=== PATIENT | male | born 1990 | race Caucasian/White ===

== ENCOUNTER 2016-08-30 12:08 | Emergency (ER) | payer OTHER ==
--- NOTE | 2016-08-30 13:33 | ED CLINICAL REPORT ---
Clinical Report - Physicians/Mid Levels [facility] [address] [place] [address] 08/30/2016 12:08 Patient: CALLIE MOLINA Time Seen: 13:08 Aug 30 2016. Arrived- By private vehicle. Historian- patient. HISTORY OF PRESENT ILLNESS Chief Complaint: SKIN RASH. 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 It is described as itchy. It has been generalized in location and located on the trunk. No cause has been identified. (Patient presents with a rash to the torso, some aspect of his chest upper extremity over the last 3 weeks, worsening, patient reports at times taking Benadryl for the rash which improves on his pruritic sensation. No history of recent illness, foreign travel. No recent known exposures to detergents, new soaps or new medications or antibiotics. No sick contacts at home with similar rash. No other systemic symptoms such as nausea vomiting fevers or diarrhea. No recent antibiotic use. Patient has not seen his regular primary care provider, as he does not have such. Here with his significant other.). REVIEW OF SYSTEMS No fever, difficulty breathing, diarrhea or difficulty with urination. All systems otherwise negative, except as recorded above. PAST HISTORY Problems: Depression. Infected Puncture Wound. Ingrown Toenail. Sprain. Tetanus Status. Additional Surgeries: no known surgeries. Medications: Lexapro Oral. Allergies: No Known Drug Allergy. SOCIAL HISTORY Smoker- current status unknown (chew). History of drug use: marijuana. ADDITIONAL NOTES The nursing notes have been reviewed. PHYSICAL EXAM Vital Signs: 08/30/2016 12:52 BP: 120/76. HR: 78. RR: 15. O2 saturation: 100%. Temp: 98.2 F. Pain level now: 0/10. Appearance: Alert. No acute distress. ENT: Ears normal. Nose normal. CVS: Normal heart rate and rhythm. Heart sounds normal. Respiratory: No respiratory distress. Breath sounds normal. Abdomen: Nontender. No organomegaly. Skin: Skin warm. No erythema. No tender indurated area. No cellulitis. Rash present on the trunk (abd/ chest/ thoracic region/ upper axilla/). The rash is macular. No warmth or tenderness. PROGRESS AND PROCEDURES Course of Care: Patient was rash on bilateral last 1 month. No signs of systemic symptoms here in the emergency department. Rash is nonpruritic in nature, does not appear infectious. Patient has not seen primary care provider as he has not had establish with one. No recent exposures known to him. Burning sensations. no vesicles. 08/30/2016 12:52 BP: 120/76. HR: 78. RR: 15. O2 saturation: 100%. Temp: 98.2 F. Pain level now: 0/10. Patient is stable. Physical exam findings are improved. Symptoms better. Patient/family counseled. Disposition: Discharged. CLINICAL IMPRESSION Mild irritative contact dermatitis. INSTRUCTIONS (Address: [address] [place] [address] [place] [address] ). Prescription Medications: Elimite 5% Cream: Shower & dry, then apply cream to whole body from neck down, leave on 8 hours then shower & launder clothes & bedclothes in hot water. Dispense sixty (60) gm. No refill. Substitution is permissible. Medrol Dosepak: take according to package directions. Dispense one (1) dosepak. No refills. Substitution is permissible. Follow-up: Follow up with your doctor in five days as needed and for wound check. (Electronically signed by Marquita Vázquez P.A.-C 08/30/2016 13:59)
--- NOTE | 2016-08-30 13:33 | ED CLINICAL REPORT ---
Clinical Report - Physicians/Mid Levels [facility] [address] [place] [address] 08/30/2016 12:08 Patient: CALLIE MOLINA Time Seen: 13:08 Aug 30 2016. Arrived- By private vehicle. Historian- patient. HISTORY OF PRESENT ILLNESS Chief Complaint: SKIN RASH. 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 It is described as itchy. It has been generalized in location and located on the trunk. No cause has been identified. (Patient presents with a rash to the torso, some aspect of his chest upper extremity over the last 3 weeks, worsening, patient reports at times taking Benadryl for the rash which improves on his pruritic sensation. No history of recent illness, foreign travel. No recent known exposures to detergents, new soaps or new medications or antibiotics. No sick contacts at home with similar rash. No other systemic symptoms such as nausea vomiting fevers or diarrhea. No recent antibiotic use. Patient has not seen his regular primary care provider, as he does not have such. Here with his significant other.). REVIEW OF SYSTEMS No fever, difficulty breathing, diarrhea or difficulty with urination. All systems otherwise negative, except as recorded above. PAST HISTORY Problems: Depression. Infected Puncture Wound. Ingrown Toenail. Sprain. Tetanus Status. Additional Surgeries: no known surgeries. Medications: Lexapro Oral. Allergies: No Known Drug Allergy. SOCIAL HISTORY Smoker- current status unknown (chew). History of drug use: marijuana. ADDITIONAL NOTES The nursing notes have been reviewed. PHYSICAL EXAM Vital Signs: 08/30/2016 12:52 BP: 120/76. HR: 78. RR: 15. O2 saturation: 100%. Temp: 98.2 F. Pain level now: 0/10. Appearance: Alert. No acute distress. ENT: Ears normal. Nose normal. CVS: Normal heart rate and rhythm. Heart sounds normal. Respiratory: No respiratory distress. Breath sounds normal. Abdomen: Nontender. No organomegaly. Skin: Skin warm. No erythema. No tender indurated area. No cellulitis. Rash present on the trunk (abd/ chest/ thoracic region/ upper axilla/). The rash is macular. No warmth or tenderness. PROGRESS AND PROCEDURES Course of Care: Patient was rash on bilateral last 1 month. No signs of systemic symptoms here in the emergency department. Rash is nonpruritic in nature, does not appear infectious. Patient has not seen primary care provider as he has not had establish with one. No recent exposures known to him. Burning sensations. no vesicles. 08/30/2016 12:52 BP: 120/76. HR: 78. RR: 15. O2 saturation: 100%. Temp: 98.2 F. Pain level now: 0/10. Patient is stable. Physical exam findings are improved. Symptoms better. Patient/family counseled. Disposition: Discharged. CLINICAL IMPRESSION Mild irritative contact dermatitis. INSTRUCTIONS (Address: [address] [place] [address] [place] [address] ). Prescription Medications: Elimite 5% Cream: Shower & dry, then apply cream to whole body from neck down, leave on 8 hours then shower & launder clothes & bedclothes in hot water. Dispense sixty (60) gm. No refill. Substitution is permissible. Medrol Dosepak: take according to package directions. Dispense one (1) dosepak. No refills. Substitution is permissible. Follow-up: Follow up with your doctor in five days as needed and for wound check. (Electronically signed by Marquita Vázquez P.A.-C 08/30/2016 13:59)
--- NOTE | 2016-08-30 13:33 | ED NURSING NOTES ---
Clinical Report - Nurses [facility] [address] [place] [address] 08/30/2016 12:08 Patient: CALLIE MOLINA TRIAGE Triage time 1250 PM. Acuity: LEVEL 4. Chief Complaint: DIARRHEA (rash). Alert. No acute distress. SEPSIS SCREEN: Sepsis Screen. Negative (no infection suspected/documented). --13:02 Rosina Guidry R.N. 12:52 08/30/16. BP: 120/76 (regular adult cuff) taken on the left arm, via an automated monitor, while sitting. HR: 78. RR: 15. O2 saturation: 100%. Temp: 98.2 F. Pain level now: 0/10. --13:02 Rosina Guidry R.N. Weight: 83.9 kg stated. Height/Length: 69 inches Per Patient. BMI: 27.3. --12:53 Rosina Guidry R.N. Medications Lexapro Oral. --12:54 Rosina Guidry R.N. Allergies No Known Drug Allergy. --12:53 Rosina Guidry R.N. Medication/allergy information source: the patient. --13:02 Rosina Guidry R.N. History Arrived by private vehicle. Historian: patient. Accompanied by family. Primary physician (None). ( Pt states noted a rash that started on his right under arm approximately 2 weeks ago and has progressively spread thru out his body, groin back, belly, bilateral arm pits, and upper legs, denies fevers does admit to having diarrhea about 2-3 times a day, pt has been having right flank pain for the past 4 weeks as well. Denies on changing any routines. Has taken benadryl with no relief). Onset. (2 weeks). He has had fever and skin rash. No weakness, cough or difficulty breathing. Denies muscle aches. 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 PAST MEDICAL HX: Immunizations: status is unknown. SOCIAL HX: Smoker- current status unknown (chew tabacco 1 can 3-4 days). History of drug use: marijuana. (1 months). No infectious disease exposure. ABUSE ASSESSMENT: No report of abuse. SELF HARM ASSESSMENT: A self harm assessment was performed. The patient answered "no" to the question "Do you have thoughts of harming or killing yourself?" and "Have you recently had thoughts about harming or killing others?". FALL RISK ASSESSMENT: Fall risk assessment completed. No fall risk identified. NUTRITIONAL RISK ASSESSMENT: The nutritional risk assessment revealed no deficiencies. FUNCTIONAL ASSESSMENT: Functional assessment: no impairments noted. LEARNING NEEDS ASSESSMENT: The learning needs assessment revealed no barriers. SKIN INTEGRITY ASSESSMENT: Skin integrity risk assessment completed. No skin integrity risk identified. --13:02 Rosina Guidry R.N. PROBLEMS: Depression. Infected Puncture Wound. Ingrown Toenail. Sprain. --12:54 oRsina Guidry R.N. ADDITIONAL SURGERIES: no known surgeries. Interventions ID band on patient. --13:02 Rosina Guidry R.N. PHYSICAL ASSESSMENT Ambulatory to room. GENERAL / NEURO / PSYCH: Alert. Oriented X 4. Appears in no acute distress. HEENT: Mucous membranes are pink. RESPIRATORY: Respirations not labored. Chest nontender. Breath sounds within normal limits. GI / : Abdomen soft and nontender and normal bowel sounds. SKIN: Skin intact. Skin is warm and dry. Generalized, well-demarcated, macular, raised skin rash located in skin folds and on the right arm and right leg, left arm and left leg, chest, back, trunk and abdomen. Normal skin turgor. --13:03 Rosina Guidry R.N. NURSING PROGRESS NOTES The initial plan of care for this patient has been created This plan of care was discussed with the patient and family. Patient gowned. Reassurance given. Two patient identifiers checked. Call light placed in reach. Side rails up x 1. Bed placed in lowest position. Brakes of bed on. Patient ready for evaluation- ED physician notified. --13:03 Rosina Guidry R.N. DISPOSITION / DISCHARGE Departure time: 1418 PM. Condition at departure: stable. No learning barriers present. Discharge instructions provided and reviewed with the patient and spouse. Reviewed medication(s) side effects, precautions, dosing and course information. Prescription(s) given to the patient. Reviewed referral to an mva operator for followup. Patient verbalized understanding. Written instructions provided in [place]. No diet instructions or activity restrictions. The patient was discharged by the physician doctor assistant. He was discharged home and accompanied by spouse. He left the Emergency Department ambulatory and via private vehicle. Spouse driving. --14:19 Rosina Guidry R.N. 14:17 08/30/16. BP: 121/74 (regular adult cuff) taken on the left arm, via an automated monitor, while standing. HR: 68. RR: 14. O2 saturation: 100% on room air. Temp: 98.3 F (oral). Pain level now: 0/10. --14:19 Rosina Guidry R.N. Locked/Released at 08/30/2016 14:19 by Rosina Guidry R.N.
--- NOTE | 2016-08-30 13:33 | ED NURSING NOTES ---
Clinical Report - Nurses [facility] [address] [place] [address] 08/30/2016 12:08 Patient: CALLIE MOLINA TRIAGE Triage time 1250 PM. Acuity: LEVEL 4. Chief Complaint: DIARRHEA (rash). Alert. No acute distress. SEPSIS SCREEN: Sepsis Screen. Negative (no infection suspected/documented). --13:02 Rosina Guidry R.N. 12:52 08/30/16. BP: 120/76 (regular adult cuff) taken on the left arm, via an automated monitor, while sitting. HR: 78. RR: 15. O2 saturation: 100%. Temp: 98.2 F. Pain level now: 0/10. --13:02 Rosina Guidry R.N. Weight: 83.9 kg stated. Height/Length: 69 inches Per Patient. BMI: 27.3. --12:53 Rosina Guidry R.N. Medications Lexapro Oral. --12:54 Rosina Guidry R.N. Allergies No Known Drug Allergy. --12:53 Rosina Guidry R.N. Medication/allergy information source: the patient. --13:02 Rosina Guidry R.N. History Arrived by private vehicle. Historian: patient. Accompanied by family. Primary physician (None). ( Pt states noted a rash that started on his right under arm approximately 2 weeks ago and has progressively spread thru out his body, groin back, belly, bilateral arm pits, and upper legs, denies fevers does admit to having diarrhea about 2-3 times a day, pt has been having right flank pain for the past 4 weeks as well. Denies on changing any routines. Has taken benadryl with no relief). Onset. (2 weeks). He has had fever and skin rash. No weakness, cough or difficulty breathing. Denies muscle aches. 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 PAST MEDICAL HX: Immunizations: status is unknown. SOCIAL HX: Smoker- current status unknown (chew tabacco 1 can 3-4 days). History of drug use: marijuana. (1 months). No infectious disease exposure. ABUSE ASSESSMENT: No report of abuse. SELF HARM ASSESSMENT: A self harm assessment was performed. The patient answered "no" to the question "Do you have thoughts of harming or killing yourself?" and "Have you recently had thoughts about harming or killing others?". FALL RISK ASSESSMENT: Fall risk assessment completed. No fall risk identified. NUTRITIONAL RISK ASSESSMENT: The nutritional risk assessment revealed no deficiencies. FUNCTIONAL ASSESSMENT: Functional assessment: no impairments noted. LEARNING NEEDS ASSESSMENT: The learning needs assessment revealed no barriers. SKIN INTEGRITY ASSESSMENT: Skin integrity risk assessment completed. No skin integrity risk identified. --13:02 Rosina Guidry R.N. PROBLEMS: Depression. Infected Puncture Wound. Ingrown Toenail. Sprain. --12:54 Rosina Guidry R.N. ADDITIONAL SURGERIES: no known surgeries. Interventions ID band on patient. --13:02 Rosina Guidry R.N. PHYSICAL ASSESSMENT Ambulatory to room. GENERAL / NEURO / PSYCH: Alert. Oriented X 4. Appears in no acute distress. HEENT: Mucous membranes are pink. RESPIRATORY: Respirations not labored. Chest nontender. Breath sounds within normal limits. GI / : Abdomen soft and nontender and normal bowel sounds. SKIN: Skin intact. Skin is warm and dry. Generalized, well-demarcated, macular, raised skin rash located in skin folds and on the right arm and right leg, left arm and left leg, chest, back, trunk and abdomen. Normal skin turgor. --13:03 Rosina Guidry R.N. NURSING PROGRESS NOTES The initial plan of care for this patient has been created This plan of care was discussed with the patient and family. Patient gowned. Reassurance given. Two patient identifiers checked. Call light placed in reach. Side rails up x 1. Bed placed in lowest position. Brakes of bed on. Patient ready for evaluation- ED physician notified. --13:03 Rosina Guidry R.N. DISPOSITION / DISCHARGE Departure time: 1418 PM. Condition at departure: stable. No learning barriers present. Discharge instructions provided and reviewed with the patient and spouse. Reviewed medication(s) side effects, precautions, dosing and course information. Prescription(s) given to the patient. Reviewed referral to an newspaper stuffer for followup. Patient verbalized understanding. Written instructions provided in Malaysian. No diet instructions or activity restrictions. The patient was discharged by the physician product development assistant. He was discharged home and accompanied by spouse. He left the Emergency Department ambulatory and via private vehicle. Spouse driving. --14:19 Rosina Guidry R.N. 14:17 08/30/16. BP: 121/74 (regular adult cuff) taken on the left arm, via an automated monitor, while standing. HR: 68. RR: 14. O2 saturation: 100% on room air. Temp: 98.3 F (oral). Pain level now: 0/10. --14:19 Rosina Guidry R.N. Locked/Released at 08/30/2016 14:19 by Rosina Guidry R.N.
--- NOTE | 2016-08-30 14:19 | ED DISCHARGE INSTRUCTIONS ---
Patient: CALLIE MOLINA General Instructions [facility] VisitID: [id number] [place] [address] 26y, M Registration Date/Time: 08/30/2016 Mild irritative contact dermatitis. INSTRUCTIONS (Address: [place] [address] ). Prescription Medications: Elimite 5% Cream: Shower & dry, then apply cream to whole body from neck down, leave on 8 hours then shower & launder clothes & bedclothes in hot water. Dispense sixty (60) gm. No refill. Substitution is permissible. Medrol Dosepak: take according to package directions. Dispense one (1) dosepak. No refills. Substitution is permissible. Follow-up: Follow up with your doctor in five days as needed and for wound check. ADDITIONAL INFORMATION Dermatitis (Non-Specific) Dermatitis is an inflammation of the skin. The exact cause of your rash is not certain. However, this rash does not appear to be an infection or contagious illness. Taking care of the rash at home should help relieve your symptoms. Home Care: Keep the areas of rash clean by washing it daily. This also helps to keep the skin moist. Use a neutral pH soap such as Dove or Lever 2000. Apply a moisturizing lotion after bathing to prevent dry skin. Avoid skin irritants (wool or silk clothing, grease, oils, some medicines, harsh soaps, and detergents). Wear absorbent, soft fabrics next to the skin rather than rough or scratchy materials. Unless another medicine was prescribed, you may use Hydrocortisone cream (which you can get without a prescription) to reduce the inflammation. Follow Up: Make an appointment with your doctor in the next 1 to 2 weeks if your symptoms do not improve with the above measures. Get Prompt Medical Attention if any of the following occur: Increasing area of redness or pain in the skin Yellow crusts or drainage from the rash Joint pain New rash that appears in other areas of the body Fever of 100.4F (38C) or higher, or as directed by your healthcare provider You have been given the following additional information: Dermatitis, Non-Specific (Electronically signed by Marquita Vázquez P.A.-C 08/30/2016 13:59)
--- NOTE | 2016-08-30 14:19 | ED MAR SUMMARY ---
..... Medication Administration Record [facility] [address] [place] [id number] Patient: CALLIE MOLINA Visit ID: [id number] 26y, M Weight: 83.9 kg Height/Length: 69 in BMI: 27.3 ALLERGIES: No Known Drug Allergy
--- NOTE | 2016-08-30 14:19 | ED DISCHARGE INSTRUCTIONS ---
Patient: CALLIE MOLINA General Instructions [facility] VisitID: [id number] [place] [address] 26y, M Registration Date/Time: 08/30/2016 Mild irritative contact dermatitis. INSTRUCTIONS (Address: [place] [address] ). Prescription Medications: Elimite 5% Cream: Shower & dry, then apply cream to whole body from neck down, leave on 8 hours then shower & launder clothes & bedclothes in hot water. Dispense sixty (60) gm. No refill. Substitution is permissible. Medrol Dosepak: take according to package directions. Dispense one (1) dosepak. No refills. Substitution is permissible. Follow-up: Follow up with your doctor in five days as needed and for wound check. ADDITIONAL INFORMATION Dermatitis (Non-Specific) Dermatitis is an inflammation of the skin. The exact cause of your rash is not certain. However, this rash does not appear to be an infection or contagious illness. Taking care of the rash at home should help relieve your symptoms. Home Care: Keep the areas of rash clean by washing it daily. This also helps to keep the skin moist. Use a neutral pH soap such as Dove or Lever 2000. Apply a moisturizing lotion after bathing to prevent dry skin. Avoid skin irritants (wool or silk clothing, grease, oils, some medicines, harsh soaps, and detergents). Wear absorbent, soft fabrics next to the skin rather than rough or scratchy materials. Unless another medicine was prescribed, you may use Hydrocortisone cream (which you can get without a prescription) to reduce the inflammation. Follow Up: Make an appointment with your doctor in the next 1 to 2 weeks if your symptoms do not improve with the above measures. Get Prompt Medical Attention if any of the following occur: Increasing area of redness or pain in the skin Yellow crusts or drainage from the rash Joint pain New rash that appears in other areas of the body Fever of 100.4F (38C) or higher, or as directed by your healthcare provider You have been given the following additional information: Dermatitis, Non-Specific (Electronically signed by Marquita Vázquez P.A.-C 08/30/2016 13:59)
--- NOTE | 2016-08-30 14:19 | ED MED RECONCILIATION SUMMARY ---
Patient: CALLIE MOLINA Medication Reconciliation Report [facility] VisitID: [id number] [address] [place] [address] 26y, M Registration Date/Time: 08/30/2016 Weight: 83.9 kg Height/Length: 69 in. BMI: 27.3 ALLERGIES: No Known Drug Allergy The patient's Home Medications are listed below: THE FOLLOWING MEDICATIONS NEED TO BE RECONCILED: Lexapro Oral The source(s) of the original Home Medication information: patient The following Medications were given to the patient in the Emergency Department: None. The following Medications were prescribed to the patient: Elimite 5% Cream: Shower & dry, then apply cream to whole body from neck down, leave on 8 hours then shower & launder clothes & bedclothes in hot water. Dispense sixty (60) gm. No refill. Substitution is permissible. -- Marquita Vázquez, P.A.-C Medrol Dosepak: take according to package directions. Dispense one (1) dosepak. No refills. Substitution is permissible. -- Marquita Vázquez, P.A.-C
--- NOTE | 2016-08-30 14:19 | ED MED RECONCILIATION SUMMARY ---
Patient: CALLIE MOLINA Medication Reconciliation Report [facility] VisitID: [id number] [address] [place] [address] 26y, M Registration Date/Time: 08/30/2016 Weight: 83.9 kg Height/Length: 69 in. BMI: 27.3 ALLERGIES: No Known Drug Allergy The patient's Home Medications are listed below: THE FOLLOWING MEDICATIONS NEED TO BE RECONCILED: Lexapro Oral The source(s) of the original Home Medication information: patient The following Medications were given to the patient in the Emergency Department: None. The following Medications were prescribed to the patient: Elimite 5% Cream: Shower & dry, then apply cream to whole body from neck down, leave on 8 hours then shower & launder clothes & bedclothes in hot water. Dispense sixty (60) gm. No refill. Substitution is permissible. -- Marquita Vázquez, P.A.-C Medrol Dosepak: take according to package directions. Dispense one (1) dosepak. No refills. Substitution is permissible. -- Marquita Vázquez, P.A.-C
--- NOTE | 2016-08-30 14:19 | ED MAR SUMMARY ---
..... Medication Administration Record [facility] [address], [place] [id number] Patient: CALLIE MOLINA Visit ID: [id number] 26y, M Weight: 83.9 kg Height/Length: 69 in BMI: 27.3 ALLERGIES: No Known Drug Allergy
== END 2016-08-30 14:10 | disposition home or self-care (01) ==
LOC: ED SRH 12:08
DX: L25.9 Unspecified contact dermatitis, unspecified cause (principal); F17.200 Nicotine dependence, unspecified, uncomplicated; F12.10 Cannabis abuse, uncomplicated

== ENCOUNTER 2016-10-11 09:21 | Emergency (ER) | payer OTHER ==
--- NOTE | 2016-10-11 10:11 | ED ORDER SUMMARY ---
..... Patient: CALLIE MOLINA OrderSheet [facility] VisitID: [id number] [address] [place] [address] 26y, M Registration Date/Time: 10/11/2016 ORDER SHEET Weight: 83.9 kg (stated) Allergies: No Known Drug Allergy GENERAL ORDERS: UA-Culture if indicated Urgent (10:03 10/11/2016 MWinterer R.N. per protocol) (10:17 MWinterer R.N.) MEDICATION ORDERS: Motrin PO 800 mg (NOW) (10:04 10/11/2016 Rick Cole) (Ack 10:07 MWinterer R.N.) (10:17 MWinterer R.N.) IV FLUIDS: ORDER SHEET NOTES: [Electronically signed by Esme Swanson R.N. (11:53 10/11/2016)] [Electronically signed by Jeevan Ann Dr. (22:26 10/11/2016)] [Electronically locked/signed by Esme Swanson R.N. (11:53 10/11/2016)]
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
--- NOTE | 2016-10-11 10:11 | ED CLINICAL REPORT ---
Clinical Report - Physicians/Mid Levels [facility] [address] [place] [place] [address] 10/11/2016 9:22 Patient: CALLIE MOLINA Time Seen: 0933; initial patient contact. Arrived- By private vehicle. Historian- patient. HISTORY OF PRESENT ILLNESS Chief Complaint: BACK PAIN. Modifying factors- worsened by bending over and lifting. Relieved by remaining still. It is described as being mild and in the area of the lower lumbar spine and right lower lumbar spine. The quality is noted to be aching. No radiation. Onset- about 2 weeks ago and it is still present. No bladder dysfunction, bowel dysfunction, sensory loss or motor loss. Patient denies an injury but injury to the head or neck. Mechanism of injury- (unknown). Occurred at home. Similar symptoms previously: None. Recent medical care: Not recently seen/assessed. REVIEW OF SYSTEMS No difficulty with urination, urinary frequency, hematuria or abdominal pain. All systems otherwise negative, except as recorded above. PAST HISTORY Contact Dermatitis. Depression. Infected Puncture Wound. Ingrown Toenail. Sprain. Medications: Allergy Oral. Allergies: No Known Drug Allergy. SOCIAL HISTORY Never smoker. Occasional alcohol use. History of drug use: marijuana. ADDITIONAL NOTES The nursing notes have been reviewed. PHYSICAL EXAM Vital Signs: 10/11/2016 09:31 BP: 119/72. HR: 60. RR: 12. O2 saturation: 98%. Temp: 97.7 F. Pain level now: 6/10. Have been reviewed as normal. Appearance: Alert. No acute distress. Abdomen: Soft and nontender. Bowel sounds normal. No organomegaly. No mass. The bowel sounds are not abnormal. Back: Mild muscle spasm of the right posterior back. Mild soft tissue tenderness in the right mid and lower lumbar area. No vertebral point tenderness, CVA tenderness or limitation in ROM. Skin: Skin warm and dry. Normal skin color. Neuro: Oriented X 3. Mood/affect normal. No motor deficit. No sensory deficit. Straight leg raising: negative on the right and negative on the left. PROGRESS AND PROCEDURES Disposition: Discharged home in good condition. Condition: good. CLINICAL IMPRESSION Acute lumbar strain. INSTRUCTIONS Prescription Medications: Baclofen 10 mg: take 1 orally every 8 hours. Dispense thirty (30). No refills. Diclofenac 50 mg tablets: take 1 tablet orally every 8 hours as needed for pain or stiffness. Dispense thirty (30). No refill. Follow-up: Follow up with your doctor in about one week if not better. Call for an appointment. Screening today revealed the patient's blood pressure to be in the normal range. (Electronically signed by Jeevan Ann Dr. 10/11/2016 22:26)
--- NOTE | 2016-10-11 10:11 | ED CLINICAL REPORT ---
Clinical Report - Physicians/Mid Levels [facility] [address] [place] [address] 10/11/2016 9:22 Patient: CALLIE MOLINA Time Seen: 0933; initial patient contact. Arrived- By private vehicle. Historian- patient. HISTORY OF PRESENT ILLNESS Chief Complaint: BACK PAIN. Modifying factors- worsened by bending over and lifting. Relieved by remaining still. It is described as being mild and in the area of the lower lumbar spine and right lower lumbar spine. The quality is noted to be aching. No radiation. Onset- about 2 weeks ago and it is still present. No bladder dysfunction, bowel dysfunction, sensory loss or motor loss. Patient denies an injury but injury to the head or neck. Mechanism of injury- (unknown). Occurred at home. Similar symptoms previously: None. Recent medical care: Not recently seen/assessed. REVIEW OF SYSTEMS No difficulty with urination, urinary frequency, hematuria or abdominal pain. All systems otherwise negative, except as recorded above. PAST HISTORY Contact Dermatitis. Depression. Infected Puncture Wound. Ingrown Toenail. Sprain. Medications: Allergy Oral. Allergies: No Known Drug Allergy. SOCIAL HISTORY Never smoker. Occasional alcohol use. History of drug use: marijuana. ADDITIONAL NOTES The nursing notes have been reviewed. PHYSICAL EXAM Vital Signs: 10/11/2016 09:31 BP: 119/72. HR: 60. RR: 12. O2 saturation: 98%. Temp: 97.7 F. Pain level now: 6/10. Have been reviewed as normal. Appearance: Alert. No acute distress. Abdomen: Soft and nontender. Bowel sounds normal. No organomegaly. No mass. The bowel sounds are not abnormal. Back: Mild muscle spasm of the right posterior back. Mild soft tissue tenderness in the right mid and lower lumbar area. No vertebral point tenderness, CVA tenderness or limitation in ROM. Skin: Skin warm and dry. Normal skin color. Neuro: Oriented X 3. Mood/affect normal. No motor deficit. No sensory deficit. Straight leg raising: negative on the right and negative on the left. PROGRESS AND PROCEDURES Disposition: Discharged home in good condition. Condition: good. CLINICAL IMPRESSION Acute lumbar strain. INSTRUCTIONS Prescription Medications: Baclofen 10 mg: take 1 orally every 8 hours. Dispense thirty (30). No refills. Diclofenac 50 mg tablets: take 1 tablet orally every 8 hours as needed for pain or stiffness. Dispense thirty (30). No refill. Follow-up: Follow up with your doctor in about one week if not better. Call for an appointment. Screening today revealed the patient's blood pressure to be in the normal range. (Electronically signed by Jeevan Ann Dr. 10/11/2016 22:26)
--- NOTE | 2016-10-11 10:11 | ED ORDER SUMMARY ---
..... Patient: CALLIE MOLINA OrderSheet [facility] VisitID: [id number] [address] [place] [address] 26y, M Registration Date/Time: 10/11/2016 ORDER SHEET Weight: 83.9 kg (stated) Allergies: No Known Drug Allergy GENERAL ORDERS: UA-Culture if indicated Urgent (10:03 10/11/2016 MWinterer R.N. per protocol) (10:17 MWinterer R.N.) MEDICATION ORDERS: Motrin PO 800 mg (NOW) (10:04 10/11/2016 Rick Cole) (Ack 10:07 MWinterer R.N.) (10:17 MWinterer R.N.) IV FLUIDS: ORDER SHEET NOTES: [Electronically signed by Esme Swanson R.N. (11:53 10/11/2016)] [Electronically signed by Jeevan Ann Dr. (22:26 10/11/2016)] [Electronically locked/signed by Esme Swanson R.N. (11:53 10/11/2016)]
--- NOTE | 2016-10-11 22:26 | ED MAR SUMMARY ---
..... Medication Administration Record [address] [place] [address] Patient: CALLIE MOLINA Visit ID: [id number] 26y, M Weight: 83.9 kg Height/Length: 69 in BMI: 27.3 ALLERGIES: No Known Drug Allergy Given 10:07 10/11/2016 Esme Swanson R.N. Medication Administered: MOTRIN [PO], Dose: 800 mg PO. Medication Ordered: Motrin PO 800 mg (NOW).
--- NOTE | 2016-10-11 22:26 | ED MED RECONCILIATION SUMMARY ---
Patient: CALLIE MOLINA Medication Reconciliation Report [facility] VisitID: [id number] [address] [place] [address] 26y, M Registration Date/Time: 10/11/2016 Weight: 83.9 kg Height/Length: 69 in. BMI: 27.3 ALLERGIES: No Known Drug Allergy The patient's Home Medications are listed below: THE FOLLOWING MEDICATIONS NEED TO BE RECONCILED: Allergy Oral The source(s) of the original Home Medication information: patient The following Medications were given to the patient in the Emergency Department: Motrin [PO] PO 800 mg, administered: 10/11/2016 10:07:00 AM The following Medications were prescribed to the patient: Baclofen 10 mg: take 1 orally every 8 hours. Dispense thirty (30). No refills. -- Jeevan Ann Dr. Diclofenac 50 mg tablets: take 1 tablet orally every 8 hours as needed for pain or stiffness. Dispense thirty (30). No refill. -- Jeevan Ann Dr.
--- NOTE | 2016-10-11 22:26 | ED MAR SUMMARY ---
..... Medication Administration Record [address] [place] [address] Patient: CALLIE MOLINA Visit ID: [id number] 26y, M Weight: 83.9 kg Height/Length: 69 in BMI: 27.3 ALLERGIES: No Known Drug Allergy Given 10:07 10/11/2016 Esme Swanson R.N. Medication Administered: MOTRIN [PO], Dose: 800 mg PO. Medication Ordered: Motrin PO 800 mg (NOW).
--- NOTE | 2016-10-11 22:26 | ED DISCHARGE INSTRUCTIONS ---
Patient: CALLIE MOLINA General Instructions [facility] VisitID: [id number] [place] [address] 26y, M Registration Date/Time: 10/11/2016 Acute lumbar strain. INSTRUCTIONS Prescription Medications: Baclofen 10 mg: take 1 orally every 8 hours. Dispense thirty (30). No refills. Diclofenac 50 mg tablets: take 1 tablet orally every 8 hours as needed for pain or stiffness. Dispense thirty (30). No refill. Follow-up: Follow up with your doctor in about one week if not better. Call for an appointment. Screening today revealed the patient's blood pressure to be in the normal range. ADDITIONAL INFORMATION Back Pain [Acute Or Chronic] Back pain is usually caused by an injury to the muscles or ligaments of the spine. Sometimes the disks that separate each bone in the spine may bulge and cause pain by pressing on a nearby nerve. Back pain may also appear after a sudden twisting/bending force (such as in a car accident), after a simple awkward movement, or lifting something heavy with poor body positioning. In either case, muscle spasm is often present and adds to the pain. Acute back pain usually gets better in one to two weeks. Back pain related to disk disease, arthritis in the spinal joints or spinal stenosis (narrowing of the spinal canal) can become chronic and last for months or years. Unless you had a physical injury (for example, a car accident or fall) X-rays are usually not ordered for the initial evaluation of back pain. If pain continues and does not respond to medical treatment, x-rays and other tests may be performed at a later time. Home Care: You may need to stay in bed the first few days. But, as soon as possible, begin sitting or walking to avoid problems with prolonged bed rest (muscle weakness, worsening back stiffness and pain, blood clots in the legs). When in bed, try to find a position of comfort. A firm mattress is best. Try lying flat on your back with pillows under your knees. You can also try lying on your side with your knees bent up towards your chest and a pillow between your knees. Avoid prolonged sitting. This puts more stress on the lower back than standing or walking. During the first two days after injury, apply an ICE PACK to the painful area for 20 minutes every 2-4 hours. This will reduce swelling and pain. HEAT (hot shower, hot bath or heating pad) works well for muscle spasm. You can start with ice, then switch to heat after two days. Some patients feel best alternating ice and heat treatments. Use the one method that feels the best to you. You may use acetaminophen (Tylenol) or ibuprofen (Motrin, Advil) to control pain, unless another pain medicine was prescribed. [NOTE: If you have chronic liver or kidney disease or ever had a stomach ulcer or GI bleeding, talk with your doctor before using these medicines.] Be aware of safe lifting methods and do not lift anything over 15 pounds until all the pain is gone. Follow Up with your doctor or this facility if your symptoms do not start to improve after one week. Physical therapy may be needed. [NOTE: If X-rays were taken, they will be reviewed by a radiologist. You will be notified of any new findings that may affect your care.] Get Prompt Medical Attention if any of the following occur: Pain becomes worse or spreads to your legs Weakness or numbness in one or both legs Loss of bowel or bladder control Numbness in the groin or genital area You have been given the following additional information: Back Pain (Acute Or Chronic) (Electronically signed by Jeevan Ann Dr. 10/11/2016 22:26)
--- NOTE | 2016-10-11 22:26 | ED MED RECONCILIATION SUMMARY ---
Patient: CALLIE MOLINA Medication Reconciliation Report [facility] VisitID: [id number] [address] [place] [address] 26y, M Registration Date/Time: 10/11/2016 Weight: 83.9 kg Height/Length: 69 in. BMI: 27.3 ALLERGIES: No Known Drug Allergy The patient's Home Medications are listed below: THE FOLLOWING MEDICATIONS NEED TO BE RECONCILED: Allergy Oral The source(s) of the original Home Medication information: patient The following Medications were given to the patient in the Emergency Department: Motrin [PO] PO 800 mg, administered: 10/11/2016 10:07:00 AM The following Medications were prescribed to the patient: Baclofen 10 mg: take 1 orally every 8 hours. Dispense thirty (30). No refills. -- Jeevan Ann Dr. Diclofenac 50 mg tablets: take 1 tablet orally every 8 hours as needed for pain or stiffness. Dispense thirty (30). No refill. -- Jeevan Ann Dr.
== END 2016-10-11 10:35 | disposition home or self-care (01) ==
LOC: ED SRH 09:21
DX: S39.012A Strain of muscle, fascia and tendon of lower back, initial encounter (principal); X58.XXXA Exposure to other specified factors, initial encounter; Y93.9 Activity, unspecified; Y92.019 Unspecified place in single-family (private) house as the place of occurrence of the external cause; Y99.9 Unspecified external cause status
CPT/HCPCS: 90004

== ENCOUNTER 2016-10-15 18:19 | Emergency (ER) | payer OTHER ==
--- NOTE | 2016-10-15 20:13 | ED CLINICAL REPORT ---
Clinical Report - Physicians/Mid Levels [facility] [address] [place] [address] 10/15/2016 18:20 Patient: CALLIE MOLINA Time Seen: 18:24; initial patient contact. Arrived- By private vehicle. Historian- patient. HISTORY OF PRESENT ILLNESS Chief Complaint: BACK PAIN. Modifying factors- worsened by bending over and lifting. Not relieved by anything. It is described as being moderate in degree and in the area of the lower lumbar spine and radiating to the right thigh. The quality is noted to be aching and similar to prior episodes. Onset- about 1 week ago and it is still present. It was gradual in onset. No bladder dysfunction, bowel dysfunction, sensory loss or motor loss. Patient denies an injury but injury to the head or neck. Similar symptoms previously: None. Recent medical care: The patient was seen recently at this facility in the emergency department. REVIEW OF SYSTEMS No difficulty with urination, abdominal pain, nausea or vomiting. All systems otherwise negative, except as recorded above. PAST HISTORY Lumbar Strain. Contact Dermatitis. Depression. Surgeries: No history of previous surgery. Additional Surgeries: no known surgeries. Medications: Baclofeen rx given 3 days ago . 1 co-workers vicodin today. ZyrTEC Allergy Oral. Allergies: No Known Drug Allergy. SOCIAL HISTORY Never smoker. Occasional alcohol use. History of drug use: marijuana. ADDITIONAL NOTES The nursing notes have been reviewed. PHYSICAL EXAM Vital Signs: 10/15/2016 18:24 BP: 130/79. HR: 82. RR: 18. O2 saturation: 97%. Temp: 98.7 F. Have been reviewed as normal. Appearance: Alert. No acute distress. Back: Moderate muscle spasm of the right posterior back. Moderate soft tissue tenderness in the right upper, mid and lower lumbar area. No vertebral point tenderness. Neuro: Oriented X 3. Mood/affect normal. No motor deficit. No sensory deficit. Straight leg raising: negative on the right and negative on the left. Reflexes normal. LABS, X-RAYS, AND EKG LS-Spine X-rays: Soft tissues normal. No fracture or subluxation. No bony lesion. Views: AP and lateral. Technique: good. The X-rays were independently viewed by me and interpreted contemporaneously by me. Prior films were not available for comparison. PROGRESS AND PROCEDURES Course of Care: Toradol 60mg IM given. Physical exam findings are improved. Symptoms much better. Disposition: Discharged home in good and improved condition. Condition: good. CLINICAL IMPRESSION Acute lumbar strain. INSTRUCTIONS Do not work tomorrow. Your Current Medications: CONTINUE TAKING THE FOLLOWING MEDICATIONS: 1 co-workers vicodin today*. Baclofeen rx given 3 days ago *. ZyrTEC Allergy Oral. Prescription Medications: Ketorolac 10 mg tablets: take 1 tablet every 6 hours as needed for pain or stiffness. Dispense fifteen (15). No refill. Follow-up: Follow up with your doctor in about three days. Call for an appointment. Screening today revealed the patient's blood pressure to be in the pre-hypertensive range. The patient should follow up with a primary care provider for blood pressure management. (Electronically signed by Jeevan Ann Dr. 10/16/2016 21:41)
--- NOTE | 2016-10-15 20:13 | ED NURSING NOTES ---
Clinical Report - Nurses [facility] [address] [place] [address] 10/15/2016 18:20 Patient: CALLIE MOLINA TRIAGE Triage time 1820. Acuity: LEVEL 4. Chief Complaint: BACK PAIN and (pt was seen here 3 days ago for same thing. states pain is getting worse and going down right knee). DELONTE COMA SCORE: [place] Coma Scale: 15- eyes open spontaneously (4); best verbal response- oriented x 4 (5); best motor response- obeys commands (6). --18:28 Lupe Zelaya R.N. 18:24 10/15/16. BP: 130/79. HR: 82. RR: 18. O2 saturation: 97%. Temp: 98.7 F. Pain level now 5/10. --18:28 Lupe Zelaya R.N. Weight: 83.9 kg stated. Height/Length: 69 inches Per Patient. BMI: 27.3. --18:26 Lupe Zelaya R.N. Medications ZyrTEC Allergy Oral. --18:29 Lupe Zelaya R.N. 1 co-workers vicodin today. --18:29 Lupe Zelaya R.N. Baclofeen rx given 3 days ago . --18:30 Lupe Zelaya R.N. Allergies No Known Drug Allergy. --18:29 Lupe Zelaya R.N. History Arrived by private vehicle. Historian: patient. Accompanied by friend. No primary care physician. The patient has had trouble walking and extremity pain. SURGERY HX: No history of previous surgery. SOCIAL HX: Never smoker. Occasional alcohol use. History of drug use: marijuana. --18:28 Lupe Zelaya R.N. PROBLEMS: Lumbar Strain. Contact Dermatitis. Depression. --18:27 Lupe Zelaya R.N. ADDITIONAL SURGERIES: no known surgeries. Interventions ID band on patient. To treatment room. --18:28 Lupe Zelaya R.N. PHYSICAL ASSESSMENT 18:20. Ambulatory to room. Patient gowned. GENERAL / NEURO / PSYCH: Alert. Oriented X 4. Appears in no acute distress. RESPIRATORY: Respirations not labored. CVS: Capillary refill less than 2 seconds. BACK: Soft tissue tenderness. --18:31 Lupe Zelaya R.N. NURSING PROGRESS NOTES 18:20. Patient gowned. Head of bed elevated. Reassurance given. Patient identifiers checked. Call light placed in reach. Side rails up. Bed placed in lowest position. Patient ready for evaluation- chart flagged. --18:31 Lupe Zelaya R.N. 18:42 10/15/2016 Toradol (Ketorolac Tromethamine) IM 60 mg given. Given in the left ventral gluteus. --18:51 Lupe Zelaya R.N. 19:09 10/15/2016 Toradol IM Response: pain is improving. Symptoms have improved the patient feels better. --19:09 Lupe Zelaya R.N. 19:15. Patient transported to radiology by wheelchair with tech. --19:32 Lupe Zelaya R.N. 19:25. Patient returned from radiology by wheelchair with tech. --19:32 Lupe Zelaya R.N. 19:50 resting quietly, states back is "a little" better after meds". --20:25 Lupe Zelaya R.N. DISPOSITION / DISCHARGE 20:20. Condition at departure: unchanged and stable. No learning barriers present. Discharge instructions provided and reviewed with the patient. Reviewed medication(s) (tordol po , ice, rest). Patient and outside sales engineer verbalized understanding. Written instructions provided in Nigerien. The patient was discharged home and accompanied by outside sales engineer. He left the Emergency Department ambulatory and via private vehicle. Information Systems Project Manager driving. --20:24 Lupe Zelaya R.N. 20:20 10/15/16. BP: 121/72. HR: 72. RR: 16. O2 saturation: 97% on room air. Temp: deferred. Pain level now: 10/02. --20:24 Lupe Zelaya R.N. Locked/Released at 10/15/2016 20:25 by GarciaLupe R.N.
--- NOTE | 2016-10-15 20:13 | ED ORDER SUMMARY ---
..... Patient: CALLIE MOLINA OrderSheet [facility] VisitID: [id number] [place] [address] 26y, M Registration Date/Time: 10/15/2016 ORDER SHEET Weight: 83.9 kg (stated) Allergies: No Known Drug Allergy GENERAL ORDERS: Lumbar Spine 2 or 3V Urgent (18:39 10/15/2016 Rick Cole) (Ack 18:43 Whitney) ([facility] [facility] Major Appliance Assembly Supervisor) MEDICATION ORDERS: Toradol IM 60 mg (NOW) (18:39 10/15/2016 Rick Cole) (Ack 18:42 DDean R.N.) (18:51 DDean R.N.) IV FLUIDS: ORDER SHEET NOTES: [Electronically signed by Lupe Zelaya R.N. (20:25 10/15/2016)] [Electronically signed by Jeevan Ann Dr. (21:41 10/16/2016)] [Electronically locked/signed by Lupe Zelaya R.N. (20:25 10/15/2016)]
--- NOTE | 2016-10-15 20:13 | ED ORDER SUMMARY ---
..... Patient: CALLIE MOLINA OrderSheet [facility] VisitID: [id number] [place] [address] 26y, M Registration Date/Time: 10/15/2016 ORDER SHEET Weight: 83.9 kg (stated) Allergies: No Known Drug Allergy GENERAL ORDERS: Lumbar Spine 2 or 3V Urgent (18:39 10/15/2016 Rick Cole) (Ack 18:43 Whitney) (19:[facility] Quality Inspector) MEDICATION ORDERS: Toradol IM 60 mg (NOW) (18:39 10/15/2016 Rick Cole) (Ack 18:42 DDean R.N.) (18:51 DDean R.N.) IV FLUIDS: ORDER SHEET NOTES: [Electronically signed by Lupe Zelaya R.N. (20:25 10/15/2016)] [Electronically signed by Jeevan Ann Dr. (21:41 10/16/2016)] [Electronically locked/signed by Lupe Zelaya R.N. (20:25 10/15/2016)]
--- NOTE | 2016-10-15 20:13 | ED NURSING NOTES ---
Clinical Report - Nurses [facility] [address] [place] [address] 10/15/2016 18:20 Patient: CALLIE MOLINA TRIAGE Triage time 1820. Acuity: LEVEL 4. Chief Complaint: BACK PAIN and (pt was seen here 3 days ago for same thing. states pain is getting worse and going down right knee). DELONTE COMA SCORE: [place] Coma Scale: 15- eyes open spontaneously (4); best verbal response- oriented x 4 (5); best motor response- obeys commands (6). --18:28 Lupe Zelaya R.N. 18:24 10/15/16. BP: 130/79. HR: 82. RR: 18. O2 saturation: 97%. Temp: 98.7 F. Pain level now 5/10. --18:28 Lupe Zelaya R.N. Weight: 83.9 kg stated. Height/Length: 69 inches Per Patient. BMI: 27.3. --18:26 Lupe Zelaya R.N. Medications ZyrTEC Allergy Oral. --18:29 Lupe Zelaya R.N. 1 co-workers vicodin today. --18:29 Lupe Zelaya R.N. Baclofeen rx given 3 days ago . --18:30 Lupe Zelaya R.N. Allergies No Known Drug Allergy. --18:29 Lupe Zelaya R.N. History Arrived by private vehicle. Historian: patient. Accompanied by friend. No primary care physician. The patient has had trouble walking and extremity pain. SURGERY HX: No history of previous surgery. SOCIAL HX: Never smoker. Occasional alcohol use. History of drug use: marijuana. --18:28 Lupe Zelaya R.N. PROBLEMS: Lumbar Strain. Contact Dermatitis. Depression. --18:27 Lupe Zelaya R.N. ADDITIONAL SURGERIES: no known surgeries. Interventions ID band on patient. To treatment room. --18:28 Lupe Zelaya R.N. PHYSICAL ASSESSMENT 18:20. Ambulatory to room. Patient gowned. GENERAL / NEURO / PSYCH: Alert. Oriented X 4. Appears in no acute distress. RESPIRATORY: Respirations not labored. CVS: Capillary refill less than 2 seconds. BACK: Soft tissue tenderness. --18:31 Lupe Zelaya R.N. NURSING PROGRESS NOTES 18:20. Patient gowned. Head of bed elevated. Reassurance given. Patient identifiers checked. Call light placed in reach. Side rails up. Bed placed in lowest position. Patient ready for evaluation- chart flagged. --18:31 Lupe Zelaya R.N. 18:42 10/15/2016 Toradol (Ketorolac Tromethamine) IM 60 mg given. Given in the left ventral gluteus. --18:51 Lupe Zelaya R.N. 19:09 10/15/2016 Toradol IM Response: pain is improving. Symptoms have improved the patient feels better. --19:09 Lupe Zelaya R.N. 19:15. Patient transported to radiology by wheelchair with tech. --19:32 Lupe Zelaya R.N. 19:25. Patient returned from radiology by wheelchair with tech. --19:32 Lupe Zelaya R.N. 19:50 resting quietly, states back is "a little" better after meds". --20:25 Lupe Zelaya R.N. DISPOSITION / DISCHARGE 20:20. Condition at departure: unchanged and stable. No learning barriers present. Discharge instructions provided and reviewed with the patient. Reviewed medication(s) (tordol po , ice, rest). Patient and outreach associate verbalized understanding. Written instructions provided in Paraguayan. The patient was discharged home and accompanied by outreach associate. He left the Emergency Department ambulatory and via private vehicle. Roving Court Reporter driving. --20:24 Lupe Zelaya R.N. 20:20 10/15/16. BP: 121/72. HR: 72. RR: 16. O2 saturation: 97% on room air. Temp: deferred. Pain level now: 10/02. --20:24 Lupe Zelaya R.N. Locked/Released at 10/15/2016 20:25 by GarciaLupe R.N.
--- NOTE | 2016-10-15 21:58 | DIAGNOSTIC IMAGING REPORT ---
PROCEDURE: XR LUMBAR SPINE 2 OR 3 VIEWS INDICATION: LOWER BACK PAIN TECHNIQUE: Three views of the lumbar spine COMPARISON: None. FINDINGS: Five lumbar-type vertebral bodies are present. Normal vertebral body height without fracture. Normal AP and transverse alignment. Mild L5-S1 disc height loss. Otherwise normal disc spaces. No significant endplate or facet joint degeneration. The visible osseous pelvis and bowel gas pattern are normal. IMPRESSION: 1. Intact lumbar spine. 2. Mild disc height loss at L5-S1.
--- NOTE | 2016-10-16 21:41 | ED MED RECONCILIATION SUMMARY ---
Patient: CALLIE MOLINA Medication Reconciliation Report [facility] VisitID: [id number] [address] [place] [address] 26y, M Registration Date/Time: 10/15/2016 Weight: 83.9 kg Height/Length: 69 in. BMI: 27.3 ALLERGIES: No Known Drug Allergy The patient's Home Medications are listed below: CONTINUE TAKING THE FOLLOWING MEDICATIONS: 1 co-workers vicodin today Baclofeen rx given 3 days ago ZyrTEC Allergy Oral The source(s) of the original Home Medication information: Not obtained. The following Medications were given to the patient in the Emergency Department: Toradol [IM] IM 60 mg, administered: 10/15/2016 6:42:00 PM The following Medications were prescribed to the patient: Ketorolac 10 mg tablets: take 1 tablet every 6 hours as needed for pain or stiffness. Dispense fifteen (15). No refill. -- Jeevan Ann Dr.
--- NOTE | 2016-10-16 21:41 | ED MAR SUMMARY ---
..... Medication Administration Record [facility] [address] [place] [address] Patient: CALLIE MOLINA Visit ID: [id number] 26y, M Weight: 83.9 kg Height/Length: 69 in BMI: 27.3 ALLERGIES: No Known Drug Allergy Given 18:42 10/15/2016 Garcia, Lupe REvert Medication Administered: TORADOL [IM] (KETOROLAC TROMETHAMINE), Dose: 60 mg IM. Medication Ordered: Toradol IM 60 mg (NOW).
--- NOTE | 2016-10-16 21:41 | ED MAR SUMMARY ---
..... Medication Administration Record [facility] [address] [place] [address] Patient: CALLIE MOLINA Visit ID: [id number] 26y, M Weight: 83.9 kg Height/Length: 69 in BMI: 27.3 ALLERGIES: No Known Drug Allergy Given 18:42 10/15/2016 Garcia, Lupe REvert Medication Administered: TORADOL [IM] (KETOROLAC TROMETHAMINE), Dose: 60 mg IM. Medication Ordered: Toradol IM 60 mg (NOW).
--- NOTE | 2016-10-16 21:41 | ED MED RECONCILIATION SUMMARY ---
Patient: CALLIE MOLINA Medication Reconciliation Report [facility] VisitID: [id number] [address] [place] [address] 26y, M Registration Date/Time: 10/15/2016 Weight: 83.9 kg Height/Length: 69 in. BMI: 27.3 ALLERGIES: No Known Drug Allergy The patient's Home Medications are listed below: CONTINUE TAKING THE FOLLOWING MEDICATIONS: 1 co-workers vicodin today Baclofeen rx given 3 days ago ZyrTEC Allergy Oral The source(s) of the original Home Medication information: Not obtained. The following Medications were given to the patient in the Emergency Department: Toradol [IM] IM 60 mg, administered: 10/15/2016 6:42:00 PM The following Medications were prescribed to the patient: Ketorolac 10 mg tablets: take 1 tablet every 6 hours as needed for pain or stiffness. Dispense fifteen (15). No refill. -- Jeevan Ann Dr.
--- NOTE | 2016-10-16 21:41 | ED DISCHARGE INSTRUCTIONS ---
Patient: CALLIE MOLINA General Instructions [facility] VisitID: [id number] [place] [address] 26y, M Registration Date/Time: 10/15/2016 Acute lumbar strain. INSTRUCTIONS Do not work tomorrow. Your Current Medications: CONTINUE TAKING THE FOLLOWING MEDICATIONS: 1 co-workers vicodin today*. Baclofeen rx given 3 days ago *. ZyrTEC Allergy Oral. Prescription Medications: Ketorolac 10 mg tablets: take 1 tablet every 6 hours as needed for pain or stiffness. Dispense fifteen (15). No refill. Follow-up: Follow up with your doctor in about three days. Call for an appointment. Screening today revealed the patient's blood pressure to be in the pre-hypertensive range. The patient should follow up with a primary care provider for blood pressure management. ADDITIONAL INFORMATION Sciatica Sciatica ("Lumbar Radiculopathy") causes a pain that spreads from the lower back down into the buttock, hip and leg. Sometimes leg pain can occur without any back pain. Sciatica is due to irritation or pressure on a spinal nerve as it comes out of the spinal canal. This is most often due to a bulge or rupture of a nearby spinal disk (the cartilage cushion between each spinal bone), which presses on a nearby nerve. Other causes include spinal stenosis (narrowing of the spinal canal) and spasm of the pyriform muscle (a muscle in the buttocks that the sciatic nerve passes through). Sciatica may begin after a sudden twisting/bending force (such as in a car accident), or sometimes after a simple awkward movement. In either case, muscle spasm is commonly present and contributes to the pain. The diagnosis of sciatica is made from the symptoms and physical exam. Unless you had a physical injury (such as a car accident or fall), X-rays are usually not ordered for the initial evaluation of sciatica because the nerves and disks cannot be seen on an x-ray. If signs of a compressed nerve are present (for example, loss of tendon reflex or strength in the leg), an MRI (magnetic resonance imaging) scan will need to be scheduled as an outpatient. Most sciatica (80-90%) gets better with medicine, exercise, physical therapy. If symptoms continue after at least three months of medical treatment, surgery may be considered. Home Care: You may need to stay in bed the first few days. But, as soon as possible, begin sitting or walking to avoid problems with prolonged bed rest. When in bed, try to find a position of comfort. A firm mattress is best. Try lying flat on your back with pillows under your knees. You can also try lying on your side with your knees bent up towards your chest and a pillow between your knees. Avoid prolonged sitting. This puts more stress on the lower back than standing or walking. Some persons find relief with heat (hot shower, hot bath or heating pad) and massage, while others prefer cold packs (crushed or cubed ice in a plastic bag, wrapped in a towel). Try both and use the method that feels best for 20 minutes several times a day. You may use acetaminophen (Tylenol) or ibuprofen (Motrin, Advil) to control pain, unless another pain medicine was prescribed. [ NOTE: If you have chronic liver or kidney disease or ever had a stomach ulcer or GI bleeding, talk with your doctor before using these medicines.] Be aware of safe lifting methods and do not lift anything over 15 pounds until all the pain is gone. Follow Up with your doctor or this facility if your symptoms do not start to improve after one week. Physical therapy or further testing may be needed. [NOTE: If X-rays were taken, they will be reviewed by a radiologist. You will be notified of any new findings that may affect your care.] Get Prompt Medical Attention if any of the following occur: Pain becomes worse, not controlled by the prescribed medicine Weakness or numbness in one or both legs Numbness in the groin, genital area Loss of bowel or bladder control Ketorolac Tromethamine Oral tablet What is this medicine? KETOROLAC (timo toe ROLE ak) is a non-steroidal anti-inflammatory drug (NSAID). It is used for a short while to treat moderate to severe pain, including pain after surgery. It should not be used for more than 5 days. How should I use this medicine? Take this medicine by mouth with a full glass of water. Follow the directions on the prescription label. Take your medicine at regular intervals. Do not take your medicine more often than directed. Do not take more than the recommended dose. A special MedGuide will be given to you by the pharmacist with each prescription and refill. Be sure to read this information carefully each time. Talk to your flexographic press operator regarding the use of this medicine in children. While this drug may be prescribed for children as young as 16 years of age for selected conditions, precautions do apply. Patients over 65 years old may have a stronger reaction and need a smaller dose. What side effects may I notice from receiving this medicine? Side effects that you should report to your doctor or health anesthesiologist and critical care as soon as possible: allergic reactions like skin rash, itching or hives, swelling of the face, lips, or tongue black or tarry stools breathing problems changes in vision chest pain high blood pressure nausea or vomiting redness, blistering, peeling or loosening of the skin, including inside the mouth severe abdominal pain slurred speech or weakness on one side of the body unexplained weight gain or swelling unusual bleeding or bruising unusually weak or tired yellowing of eyes or skin Side effects that usually do not require medical attention (report to your doctor or health anesthesiologist and critical care if they continue or are bothersome): diarrhea dizziness headache heartburn What may interact with this medicine? Do not take this medicine with any of the following medications: aspirin and aspirin-like medicines cidofovir methotrexate NSAIDs, medicines for pain and inflammation, like ibuprofen or naproxen pemetrexed probenecid This medicine may also interact with the following medications: alcohol alendronate alprazolam carbamazepine cyclosporine diuretics flavocoxid fluoxetine ginkgo lithium medicines for high blood pressure like enalapril medicines that affect platelets like pentoxifylline medicines that treat or prevent blood clots like heparin, warfarin muscle relaxants phenytoin steroid medicines like prednisone or cortisone thiothixene What if I miss a dose? If you miss a dose, take it as soon as you can. If it is almost time for your next dose, take only that dose. Do not take double or extra doses. Where should I keep my medicine? Keep out of the reach of children. Store at room temperature between 20 and 25 degrees C (68 and 77 degrees F). Throw away any unused medicine after the expiration date. What should I tell my health care provider before I take this medicine? They need to know if you have any of these conditions: asthma bleeding problems like hemophilia cigarette smoker drink more than 3 alcohol containing drinks a day heart disease or circulation problems such as heart failure or leg edema (fluid retention) high blood pressure kidney disease liver disease stomach bleeding or ulcers an unusual or allergic reaction to ketorolac, aspirin, other NSAIDs, other medicines, foods, dyes, or preservatives or trying to get breast-feeding What should I watch for while using this medicine? Tell your doctor or health anesthesiologist and critical care if your pain does not get better. Talk to your doctor before taking another medicine for pain. Do not treat yourself. This medicine does not prevent heart attack or stroke. In fact, this medicine may increase the chance of a heart attack or stroke. The chance may increase with longer use of this medicine and in people who have heart disease. If you take aspirin to prevent heart attack or stroke, talk with your doctor or health anesthesiologist and critical care. Do not take medicines such as ibuprofen and naproxen with this medicine. Side effects such as stomach upset, nausea, or ulcers may be more likely to occur. Many medicines available without a prescription should not be taken with this medicine. This medicine can cause ulcers and bleeding in the stomach and intestines at any time during treatment. Do not smoke cigarettes or drink alcohol. These increase irritation to your stomach and can make it more susceptible to damage from this medicine. Ulcers and bleeding can happen without warning symptoms and can cause . You may get drowsy or dizzy. Do not drive, use machinery, or do anything that needs mental alertness until you know how this medicine affects you. Do not stand or sit up quickly, especially if you are an older patient. This reduces the risk of dizzy or fainting spells. This medicine can cause you to bleed more easily. Try to avoid damage to your teeth and gums when you brush or floss your teeth. You have been given the following additional information: Back Pain W/ Sciatica Ketorolac Tromethamine Oral tablet Do not work tomorrow. (Electronically signed by Jeevan Ann Dr. 10/16/2016 21:41)
== END 2016-10-15 20:20 | disposition home or self-care (01) ==
LOC: ED SRH 18:19
DX: S39.012A Strain of muscle, fascia and tendon of lower back, initial encounter (principal); X50.1XXA Overexertion from prolonged static or awkward postures, initial encounter; Y93.9 Activity, unspecified; Y92.9 Unspecified place or not applicable; Y99.9 Unspecified external cause status